=== PATIENT | female | born 1985 | race Caucasian/White ===

== ENCOUNTER 2018-07-04 12:48 | Emergency (ER) | payer OTHER ==
[~2018-07-04] VITALS: Ht 172.7 cm; Wt 88.5 kg
[2018-07-04 13:24] LABS: ABSOLUTE EOSINOPHILS 0.1 thou/uL (0.0-0.7); ABSOLUTE LYMPHOCYTES 2.1 thou/uL (0.8-5.3); ABSOLUTE MONOCYTES 0.7 thou/uL (0.0-1.2); ABSOLUTE NEUTROPHILS 4.8 thou/uL (1.6-8.1); BASOPHILS 0.2 %; EOSINOPHILS 0.7 %; HEMATOCRIT 38.4 % (37.0-47.0); HEMOGLOBIN 12.8 gm/dL (12.0-15.0); LYMPHOCYTES 27.3 %; MCH 30.2 pg (26.0-34.0); MCHC 33.2 g/dL (28.0-37.0); MONOCYTES 8.7 %; MPV 8.1 fl. (7.2-11.1); NUCLEATED RBCS 0 /100WBC; PLATELET COUNT* 353 thou/uL (150-400); POLYS 63.1 %; RBC 4.22 mil/uL (4.20-5.00); RDW-CV 13.7 % (10.5-14.5); WBC 7.6 thou/uL (4.0-11.0)
[2018-07-04 13:32] LABS: ANION GAP 6 mmol/L (7-16); BUN 12 mg/dL (7-18); CALCIUM 8.7 mg/dL (8.5-10.1); CHLORIDE 103 mmol/L (98-107); CO2 29 mmol/L (21-32); CREATININE 0.8 mg/dL (0.6-1.3); GLUCOSE 82 mg/dL (70-99); POTASSIUM 3.8 mmol/L (3.5-5.1); SODIUM 138 mmol/L (136-145)
[2018-07-04 13:38] LABS: ALBUMIN 3.7 g/dL (3.4-5.0); ALKALINE PHOSPHATASE 55 U/L (46-116); SGOT 14 U/L (15-37); SGPT 26 U/L (30-65); TOTAL BILIRUBIN 0.3 mg/dL (<0.1-1.0); TOTAL PROTEIN 7.1 g/dL (6.4-8.2); TROPONIN-I LEVEL <0.06 ng/mL (<0.06)
[2018-07-04 15:29] VITALS: BP 118/87
--- NOTE | 2018-07-04 18:13 | EKG ---
[place] [address] ELECTROCARDIOGRAM REPORT Name: BASIL GUZMAN Room: [facility]#: [id number] Admission: 07/04/18 Attend Phys: Discharge: 07/04/18 Date of : 89 Report #: [id number] THIS REPORT FOR: //name// [facility] ED Test Date: 2018-07-04 Test Time: 12:56:49 Pat Name: BASIL GUZMAN Department: Room: Gender: F Financial Reporting Accountant: Segundo STILL : 1985 Requested By: Jacob Hightower Order Number: [id number] MD: Sly Scruggs Measurements Intervals [place] Rate: 92 P: 36 LA: 133 QRS: 15 QRSD: 86 T: 40 QT: 346 QTc: 429 Interpretive Statements Sinus rhythm No previous ECG available for comparison Electronically Signed On 07-04-2018 18:13:09 CDT by Sly Scruggs [email or web address] <ELECTRONICALLY SIGNED> By: Sly Scruggs MD, [facility] 07/04/18 1813 1256 1256 Sly Scruggs MD, FACC /EPI
== END 2018-07-04 15:31 | disposition home or self-care (01) ==
LOC: M.ERS 12:48
PROVIDERS: Emergency Medicine Emergency Medical Services
DX: R53.1 Weakness (principal)